=== PATIENT | female | born 2000 | race Caucasian/White ===

== ENCOUNTER 2022-05-20 20:39 | Emergency (ER) | payer OTHER, SELFPAY ==
[2022-05-20] VITALS (18 sets, daily range): BP systolic 112–131; BP diastolic 69–85; PULSE 76–106; RESP 14–24; TEMP 37; O2SAT 95–100
--- NOTE | ~2022-05-20 | US_ITS ---
EXAMINATION: US OB <=14 wk fetus w TV DATE: 05/20/2022 22:59 INDICATION: Vaginal bleeding. TECHNIQUE: Real-time transabdominal and transvaginal pelvic ultrasound was performed. COMPARISON: None. FINDINGS: TRANSABDOMINAL ULTRASOUND: The uterus measures 7.8 x 4.4 x 6.2 cm. TRANSVAGINAL ULTRASOUND: There is no visible intrauterine gestational sac. The endometrium measures 1 .5 cm in thickness. The right ovary measures 3.0 x 1.6 x 1.5 cm. The left ovary measures 3.1 x 1.1 x 1.1 cm. There is normal vascular flow in the ovaries. There is trace free fluid in the pelvis. IMPRESSION: 1. No visible intrauterine gestational sac, which may be normal in early . If the patient h as passed tissue, the endometrial thickness would be consistent with retained product of concep tion. Ectopic is not excluded. Serial beta hCGs are recommended. Reviewed, dictated and finalized at location A. [employer] IMPRESSION: 1. No visible intrauterine gestational sac, which may be normal in early pregn preet. If the patient has passed tissue, the endometrial thickness would b e consistent with retained product of conception. Ectopic is not excl uded. Serial beta hCGs are recommended.
--- NOTE | 2022-05-20 21:06 | ED.GENADULT ---
HPI - General Adult General Chief complaint: Vaginal Bleeding Stated complaint: vaginal bleeding Time Seen by Provider: 05/20/22 20:51 History of Present Illness HPI narrative: Patient is a 22-year-old female who presents the emergency department with chief complaint of vaginal bleeding. The patient reports that she is followed by her OB and is currently approximately 6 to 8 weeks . The patient had an ultrasound that confirmed that she was having a miscarriage and her OB wrote for Cytotec for her. The patient took a dose this morning and started having bleeding passing blood clots and had a fair amount of blood this evening. The patient reports that when she was standing up in the bathroom she became lightheaded and decided to come to the emergency department. The patient reports that her primary OB is in [place] at [facility]. The patient reports that she is Rh- and received a dose of RhoGAM on April 21 Related Data Home Medications Medication Instructions Recorded Confirmed desvenlafaxine succinate 100 mg 100 mg PO DAILY 05/20/22 05/20/22 tablet,extended release 24 hr (Pristiq) Allergies Allergy/AdvReac Type Severity Reaction Status Date / Time fluoxetine [From Prozac] Allergy Hives Verified 05/20/22 20:55 Review of Systems Review of Systems: A 10 system review of systems was completed on the patient and is negative except for what is stated in the HPI. Nursing and ancillary documentation was reviewed. Exam Narrative: GENERAL: Well-appearing, well-nourished, and in no acute distress. HEAD: Normocephalic, atraumatic. EYES: PERRLA and EOMI. ENT: Nares clear, no rhinorrhea or epistaxis. Mucous membranes moist. NECK: Supple. CHEST: Clear to auscultation. No respiratory distress. HEART: Regular rate and rhythm. No murmur heard. Normal peripheral pulses. ABDOMEN: Soft, nontender, nondistended, normal active bowel sounds. : There are clots and a small amount of tissue in the vaginal vault. This was removed with ring forceps and clots were removed from the vault EXTREMITIES: Normal range of motion. No edema. SKIN: Warm, dry, no rash. NEURO: No focal deficits. Alert and oriented x3. PSYCH: Normal mood and affect. Course Vital Signs Vital signs: Vital Signs Oxygen Delivery Room Air 05/20/22 20:44 Temperature 37.0 C 05/20/22 20:50 Pulse Rate 98 05/20/22 23:16 Respiratory Rate 16 05/20/22 23:16 Blood Pressure 119/79 05/20/22 23:16 Pulse Oximetry 99 05/20/22 23:16 Oxygen Delivery Room Air 05/20/22 20:50 Medical Decision Making Vital Signs Vital Signs: Vital Signs Oxygen Delivery Room Air 05/20/22 20:44 Temperature 37.0 C 05/20/22 20:50 Pulse Rate 98 05/20/22 23:16 Respiratory Rate 16 05/20/22 23:16 Blood Pressure 119/79 05/20/22 23:16 Pulse Oximetry 99 05/20/22 23:16 Oxygen Delivery Room Air 05/20/22 20:50 Lab Data 05/20/22 21:31 05/20/22 21:31 Labs: Lab Results 05/20/22 05/20/22 05/20/22 Range/Units 21:23 21:31 21:31 WBC 11.0 H (4.5-10.0) K/mm3 RBC 3.71 L (4.2-5.4) M/mm3 Hgb 11.2 L (12.0-15.0) g/dL Hct 33.5 L (37.0-47.0) % MCV 90.3 (80-100) fl MCH 30.2 (26-34) pg MCHC 33.4 (32-36) g/dl RDW 13.4 (11.5-14.5) % Plt Count 209 (150-375) k/mm3 MPV 9.5 (7.4-10.4) fl Immature Gran % (Auto) 0.4 (0-0.5) % Neut % (Auto) 66.7 (45.5-73.1) % Lymph % (Auto) 20.0 (18.3-44.2) % [place] % (Auto) 4.9 (2.6-8.5) % Eos % (Auto) 7.5 H (0-4.4) % Baso % (Auto) 0.5 (0.2-1.2) % Lymph # (Auto) 2.20 (0.9-3.2) K/mm3 [place] # (Auto) 0.5 (0.1-0.6) K/mm3 Eos # (Auto) 0.8 H (0-0.3) K/mm3 Baso # (Auto) 0.1 (0.0-0.1) K/mm3 Abs Immat Gran (auto) 0.04 H (0.00-0.031) K/mm3 Absolute Neuts (auto) 7.3 H (1.3-6.7) K/mm3 Absolute Nucleated RBC 0.0 (0.0-0.012) K/mm3 Nucleated RBC % 0.0 (0.0-0.2) % Sodium
[2022-05-20 21:38] LABS: Basophils Absolute Auto 0.1 K/mm3 (0.0-0.1); Basophils Percent Auto 0.5 % (0.2-1.2); Eosinophils Absolute Auto 0.8 K/mm3 (0-0.3); Eosinophils Percent Auto 7.5 % (0-4.4); Hematocrit 33.5 % (37.0-47.0); Hemoglobin 11.2 g/dL (12.0-15.0); Immature Granulocyte Absolute 0.04 K/mm3 (0.00-0.031); Immature Granulocyte Percent A 0.4 % (0-0.5); Mean Corpuscular HGB Conc 33.4 g/dl (32-36); Mean Corpuscular Hemoglobin 30.2 pg (26-34); Mean Corpuscular Volume 90.3 fl (80-100); Mean Platelet Volume 9.5 fl (7.4-10.4); Monocytes Absolute Auto 0.5 K/mm3 (0.1-0.6); Monocytes Percent Auto 4.9 % (2.6-8.5); Neutrophils Absolute Auto 7.3 K/mm3 (1.3-6.7); Neutrophils Percent Auto 66.7 % (45.5-73.1); Platelet Count Result 209 k/mm3 (150-375); Red Blood Count 3.71 M/mm3 (4.2-5.4); Red Cell Distribution Width 13.4 % (11.5-14.5)
[2022-05-20 21:47] LABS: Appearance Urine Clear (Clear); Bilirubin Urine Negative (Negative); Blood Urine 2+ (Negative); Color Urine Yellow (Yellow); Glucose Urine UA Negative (Negative); Ketones Urine Negative (Negative); Leukocyte Esterase Ur Negative LEU/UL (Negative); Nitrate Urine Negative (Negative); Protein Urine Trace mg/dL (Negative); Specific Grav Ur 1.025 (1.001-1.035); Urobilinogen Urine 0.2 mg/dL (<2.0); pH Urine 6.5 (5.0-9.0)
[2022-05-20 21:48] LABS: Bacteria Urine Trace /hpf; Mucus Urine Rare /lpf; RBC Urine 21-50 /hpf (0-2); Squamous Epithelial Cell Urine Rare /hpf (Few); WBC Urine 0-3 /hpf
[2022-05-20 21:51] LABS: Alanine Aminotransferase 25 U/L (6-35); Albumin Level 3.9 g/dL (3.5-5.1); Alkaline Phosphatase 72 U/L (38-126); Anion Gap 4 mmol/L (8-16); Aspartate Amino Transferase 22 U/L (14-36); Bilirubin,Total 0.3 mg/dL (0.2-1.3); Blood Urea Nitrogen 11 mg/dL (7-17); Carbon Dioxide 28 mmol/L (22-30); Chloride 105 mmol/L (98-107); Estimated CRCL calculation 118 ml/min; Estimated Glomerular Filt Rate > 60; Glucose 88 mg/dL (65-110); Potassium 3.7 mmol/L (3.4-5.0); Sodium 137 mmol/L (137-145)
[2022-05-20 21:56] LABS: Add Urine Microscopic? YES
[2022-05-20] MEDS: MORPHINE SULFATE (*CRX) 4 MG/ML INJ IV PUSH (22:59)
[2022-05-20] MEDS: ONDANSETRON INJ 4 MG/2 ML VIAL IV PUSH (22:59)
[2022-05-21] VITALS: PULSE 75; RESP 19; O2SAT 100
[2022-05-21 00:10] VITALS: BP 110/78; PULSE 78; O2SAT 100
--- NOTE | 2022-05-21 00:38 | PC.NURSE ---
Spoke with Jessica at [facility] office about demise. All questions answered at this time.
== END 2022-05-21 00:36 | disposition home or self-care (01) ==
PROVIDERS: Emergency Provider Emergency Medicine
DX: O03.4 Incomplete spontaneous abortion without complication (principal)
CPT/HCPCS: 36415; 76801; 76817; 80053; 81001; 84702; 85025; 88305; 96374; 96375; 99284; J2270; J2405